=== PATIENT | female | born 2005 | race Caucasian/White ===

== ENCOUNTER → 2025-06-05 | Day surgery (SDC) | payer OTHER ==
[~2025-06-05] MED LIST: ACETAMINOPHEN 1000 MG/100 ML 0 ML IV ONE; B COMPLEX1 EACH PO; BUPIVACAINE LIPOSOME/PF 266 MG/20 ML IJ ONE; DEXAMETHASONE SOD PHOS INJ 4 MG/ML SDV ONE; FENTANYL CITRATE/PF 100MCG/2 ML INJ ONE; IRON18 M1 PO; LIDOCAINE HCL 2% LOCAL INJ 5 ML SDV VIAL INJ ONE; MAGNESIUM PO; MIDAZOLAM HCL 2 MG/2 ML VIAL ONE; MULTICOLLAGEN PO; OMEGA 3 1,0001 EACH PO; ONDANSETRON HCL INJ 2MG/ML 2ML 2 MG/ML VIAL ONE; PROPOFOL IV EMULSION 0 ML IV ONE; ROCURONIUM BROMIDE 0 ML IV ONE; SUCCINYLCHOLINE CHLORIDE 20 MG/ML 10ML VIAL ONE; ULTRAM 50MG50 MG PO
[2025-06-05] MEDS: LACTATED RINGER'S 1,000 ML ONE (08:15)
[2025-06-05 08:24] VITALS: TEMP 97.3
[2025-06-05 09:25] VITALS: BP 117/73; PULSE 60; RESP 18; O2SAT 100
== END | disposition home or self-care (01) ==
LOC: OR 05:24
PROVIDERS: ATTEND Orthopaedic Surgery Sports Medicine
DX: S83.241A Other tear of medial meniscus, current injury, right knee, initial encounter (principal); M23.8X1 Other internal derangements of right knee; Z53.8 Procedure and treatment not carried out for other reasons; X58.XXXA Exposure to other specified factors, initial encounter; F41.9 Anxiety disorder, unspecified; Z88.0 Allergy status to penicillin; Z88.8 Allergy status to other drugs, medicaments and biological substances; Z01.810 Encounter for preprocedural cardiovascular examination
CPT/HCPCS: 29868; 81025; 93005; J0666; J2250; J3010; J7121; J0330; J1100; J2003; J2405